=== PATIENT | female | born 1955 | race Caucasian/White ===

== ENCOUNTER 2022-07-03 06:19 | Observation (INO) ==
--- NOTE | 2022-07-03 06:47 | DR.EXTPAIN ---
HPI Time seen Time Seen by Provider: 07/03/22 06:46 PCP Primary Care Physician: AGUS SAUCEDO Complaint/Symptoms Chief Complaint Doctor Comments: 66 y/o female presents for evaluation. Was seen here yesterday with chills, confusion, day after receiving a Covid vaccine. Had an unremarkable w/u here yesterday, by me. Pt was trying to clean an imaginary chair, per the daughter, fell and hit the back of her head this am. + hematoma, back of head. + headache. No nausea, vomiting. No further chills. No URI symptoms. Denies bowel, bladder complaints. Pt recalls having some confusion few weeks ago, seen in the office. Glucose was > 400 then. Chief Complaint:: PT FELL THIS MORNING AND HIT THE BACK OF HER HEAD ON THE CONCRETE FLOOR. DENIES ANY LOSS OF CONSCIOUSNESS. PT C/O CONSTANT PAIN INTO THE BACK OF THE HEAD DESCRIBED ACHING. COVID-19 Coronavirus risk:travel/contact w/high risk person: No Has patient experienced Coronavirus symptoms: No Nurses notes reviewed Nurses Notes Review: Yes Source History Provided: Patient and EMS Mode of arrival Mode of Arrival: EMS Timing Onset of Chief Complaint: 07/03/22 PMH PMH Past Medical History: Yes Past Medical History: Asthma, Diabetes and GERD Past Surgical History: Yes Surgical History: Appendectomy and Cholecystectomy Family History History of Family Medical Conditions: Yes Family Medical History: Cancer and Hypertension Social History Does patient currently use any type of tobacco product: No Have you used tobacco products in the last 12 months: No Type of Tobacco Use: None Does any household member use tobacco: No Alcohol Use: None Do you use any recreational Drugs:: No Lives With: Family Lives Where: Home Travel Risk Coronavirus risk:travel/contact w/high risk person: No Has patient experienced Coronavirus symptoms: No Infectious screening In the last 2 months have you had wt loss of >10#?: NO Have you had fever, night sweats or hemotysis?: No Have you traveled outside the country in the last 6 months?: No Isolation: Standard ROS Review of Systems Constitutional: No Symptoms Reported Eyes: No Symptoms Reported ENTM: No Symptoms Reported Respiratoy: No Symptoms Reported Cardiovascular: No Symptoms Reported Gastrointestinal/Abdominal: No Symptoms Reported Genitourinary: No Symptoms Reported Neurological: Headache Musculoskeletal: No Symptoms Reported Integumentary: No Symptoms Reported Hematologic/Lymphatic: No Symptoms Reported Psychiatric: No Symptoms Reported All Other Systems: Reviewed and Negative PE Vital Signs Vitals: Temperature 98.3 F Pulse Rate 120 Respiratory Rate 20 Blood Pressure [Left Arm] 134/61 Blood Pressure 138/62 O2 Sat by Pulse Oximetry 99 General General Appearance: Alert and In No Apparent Distress (+ sleepy, but easily arousable) Head Head Exam: Other (+ hematoma of left occipital region, no open wound.) Eyes Eye exam: PERRL and EOMI Neck Neck Exam: Normal Inspection and Full ROM; negative Tenderness Respiratory Respiratory Exam: Normal Lung Sounds Bilat; negative Accessory Muscle Use or Respiratory Distress Cardiovascular Cardiovascular Exam: Regular Rate, Normal Rhythm and Normal Heart Sounds Abdominal Exam Abdominal Exam: Normal Inspection, Normal Bowel Sounds and Soft; negative Te nderness Extremities Extremities Exam: Normal Inspection and Full ROM; negative Edema Neurological Neurological Exam: Alert, Oriented X3 and CN II-XII Intact; negative Motor Sensory Deficit Skin Skin Exam: Warm and Dry COURSE Treatment Treatment: 66 y/o female fell this am during an episode of altered mental status. Started yesterday, w/u here was negative then. No chills today. Pt is currently oriented to , current month/year, current President. CT head without intracranial pathology, + hematoma. Pt given IV fluids, will repeat a w/u. Pt with good pulse ox awake, drops when sleeping. No known h/o sleep apnea in the past. W/u unremarkable for acute abnormalities, except elevated glucose. Given IV regular insulin here. Recommend admission for further observation. Discussed with business consultant md, accepts the admission. [facility] Labs Reviewed Laboratory Results Reviewed?: Yes Result Diagrams: 07/05/22 04:52 07/05/22 04:52 Laboratory: WBC 10.3 X10^3/uL (3.6-10.0) H 07/03/22 07:26 RBC 3.45 X10^6/uL (3.5-5.4) L 07/03/22 07:26 Hgb 10.4 g/dL (12.0-16.0) L 07/03/22 07:26 Hct 31.4 % (36.0-47.0) L 07/03/22 07:26 MCV 90.9 fL (80.0-100.0) 07/03/22 07:26 MCH 30.2 pg (27.0-34.0) 07/03/22 07: MCHC 33.2 g/dL (33.0-35.0) 07/03/22 07: RDW 13.8 % (11.6-16.5) 07/03/22 07: Plt Count 231 X10^3/uL (150.0-450.0) 07/03/22 07: MPV 7.9 fL (7.4-11.0) 07/03/22 07: Neut % (Auto) 83.9 % (42.0-75.0) H 07/03/22 07: Lymph % (Auto) 7.5 % (21.0-51.0) L 07/03/22: [place] % (Auto) 5.1 % (0.0-13.0) 07/03/22 07: Eos % (Auto) 2.9 % (0.9-2.9) 07/03/22 07: Baso % (Auto) 0.6 % (0.2-1.0) 07/03/22 07: Neut # (Auto) 8.7 x10^3/uL (2.2-4.8) H 07/03/22 07: Lymph # (Auto) 0.8 X10^3/uL (1.3-2.9) L 07/03/22 07:26 [place] # (Auto) 0.5 x10^3/uL (0.3-0.8) 07/03/22 07: Eos # (Auto) 0.3 x10^3/uL (0.0-0.2) H 07/03/22 07:26 Baso # (Auto) 0.1 X10^3/uL (0.0-0.1) 07/03/22 07: Absolute Nucleated RBC 0.0 /100WBC 07/03/22 07: Sample Site Rra 07/03/22 07:45 ABG pH 7.440 (7.35-7.45) 07/03/22 07:45 ABG pCO2 41.0 mmHg (35.0-45.0) 07/03/22 07:45 ABG pO2 72.0 mmHg (80.0-100.0) L 07/03/22 07:45 ABG HCO3 27.8 mmol/L (22-26) H 07/03/22 07:45 ABG O2 Saturation 95.0 % (90-100) 07/03/22 07:45 ABG Base Excess 3.3 mmol/L (-2.0-2.0) H 07/03/22 07:45 Roddy Test Pos 07/03/22 07:45 A-a Gradient 26.0 mmHg 07/03/22 07:45 FiO2 21.0 07/03/22 07:45 Blood Gas Comments Pt leydi well eb 07/03/22 07:45 Sodium 130 mmol/L (136-145) L 07/03/22 07:26 Corrected Sodium 138 mmol/L (136-145) 07/03/22 07:26 Potassium 4.8 mmol/L (3.5-5.1) 07/03/22 07:26 Chloride 96 mmol/L (98-107) L 07/03/22 07:26 Carbon Dioxide 28.8 mmol/L (21-32) 07/03/22 07:26 BUN 33 mg/dL (7-18) H 07/03/22 07:26 Creatinine 1.69 mg/dL (0.55-1.02) H 07/03/22 07:26 Est GFR (MDRD) Af Amer 39 (>60) L 07/03/22 07:26 Est GFR (MDRD) Non-Af 32 (>60) L 07/03/22 07:26 Glucose 448 mg/dL (65-99) H 07/03/22 07:26 Calcium 9.1 mg/dL (8.5-10.1) 07/03/22 07:26 Corrected Calcium 9.8 mg/dL (8.5-10.1) 07/03/22 07:26 Total Bilirubin 1.00 mg/dL (0.2-1.0) 07/03/22 07:26 AST 28 Units/L (15-37) 07/03/22 07:26 ALT 62 Units/L (12-78) 07/03/22 07:26 Alkaline Phosphatase 121 Units/L (46-116) H 07/03/22 07:26 Troponin I High Sens 8.7 ng/L (4.0-60.0) 07/03/22 07:26 Total Protein 6.9 g/dL (6.4-8.2) 07/03/22 07:26 Albumin 3.1 g/dL (3.4-5.0) L 07/03/22 07:26 Globulin 3.8 g/dL (2.5-4.5) 07/03/22 07:26 Albumin/Globulin Ratio 0.8 Ratio (1.1-2.1) L 07/03/22 07:26 Lipase 77 Units/L (73-393) 07/03/22 07:26 TSH 3rd Generation 0.738 uIU/mL (0.358-3.74) 07/03/22 07:26 Specimen Type Clean catch urine 07/03/22 07:36 Urine Color Yellow (YELLOW) 07/03/22 07:36 Urine Appearance Clear (CLEAR) 07/03/22 07:36 Urine pH 6.0 (5.0 - 8.0) 07/03/22 07:36 Ur Specific [place] 1.010 (1.000-1.030) 07/03/22 07:36 Urine Protein 3+ (NEGATIVE) 07/03/22 07:36 Urine Glucose (UA) 4+ (NEGATIVE) 07/03/22 07:36 Urine Ketones Negative (NEGATIVE) 07/03/22 07:36 Urine Blood Negative (NEGATIVE) 07/03/22 07:36 Urine Nitrite Negative (NEGATIVE) 07/03/22 07:36 Urine Bilirubin Negative (NEGATIVE) 07/03/22 07:36 Urine Urobilinogen Normal (NORMAL) 07/03/22 07:36 Ur Leukocyte Esterase Negative (NEGATIVE) 07/03/22 07:36 Urine RBC 0-2 /HPF (0-3) 07/03/22 07:36 Urine WBC 0-2 /HPF (0-5) 07/03/22 07:36 Ur Squamous Epith Cells Few /HPF (NEGATIVE) 07/03/22 07:36 Urine Bacteria Negative /HPF (NEGATIVE) 07/03/22 07:36 Ur Culture Indicated? No/not indicated 07/03/22 07:36 XRAY XRAY Interpreted by: Both X-ray Results: CT head without acute intracranial pathology, + posterior hematoma. Opioid Opioid Risk Tool Age (Ziggy box if 16-45): No History of Preadolescent Sexual Abuse: No Total: 0 Total Score Risk Category: Low Risk Copyright: Clifford HERRERA predicting aberrant behaviors Discharge Plan Diagnosis Discharge Problem: Altered mental status, Hyperglycemia Discharge Plan Patient Disposition: 09 ADMITTED INPATIENT Condition: Stable
--- NOTE | 2022-07-03 07:03 | CT ---
HISTORYFALLSTUDYHEAD (TRAUMA)COMPARISONNone.TECHNIQUEMultiple axial images of the head were performed from the skullbase to the vertex using standard departmental protocol. Sagittal and coronal reformatted images were performed. Dose reduction techniques including Automated Exposure Control (AEC) and adjustment of mA and kV were utilized.FINDINGSThe lateral ventricles and basilar cisterns are patent.No parenchymal mass or hematoma. Rios-white differentiation appears acutely preserved. Mild low attenuation change in the subcortical and deep supratentorial white matter.No extra-axial collection.The globes are intact.No air fluid levels in the paranasal sinuses. No paranasal sinus wall thickening or sclerosis. Mastoid air cells are clear.The calvarium is intact. There is moderate left posterior scalp hematoma measuring 5.1 x 1.6 cm axial image 5 series 13 and 6.3 cm craniocaudal image 20 series 15.IMPRESSIONNo acute intracranial abnormality. Left posterior scalp hematoma.Electronically signed by: Naun Riley (Jul 03, 2022 07:02:10)
[2022-07-03] MEDS ORDERED: NS 1,000 ML IV 1,000 ML IV ONE (07:08)
[2022-07-03 07:35] LABS: BASOPHILS # (AUTO) 0.1 X10^3/uL (0.0-0.1); BASOPHILS % (AUTO) 0.6 % (0.2-1.0); EOSINOPHILS # (AUTO) 0.3 x10^3/uL (0.0-0.2); EOSINOPHILS % (AUTO) 2.9 % (0.9-2.9); HEMATOCRIT 31.4 % (36.0-47.0); HEMOGLOBIN 10.4 g/dL (12.0-16.0); LYMPHOCYTES # (AUTO) 0.8 X10^3/uL (1.3-2.9); LYMPHOCYTES % (AUTO) 7.5 % (21.0-51.0); MEAN CORPUSCULAR HEMOGLOBIN 30.2 pg (27.0-34.0); MEAN CORPUSCULAR HGB CONC 33.2 g/dL (33.0-35.0); MEAN CORPUSCULAR VOLUME 90.9 fL (80.0-100.0); MEAN PLATELET VOLUME 7.9 fL (7.4-11.0); MONOCYTES # (AUTO) 0.5 x10^3/uL (0.3-0.8); MONOCYTES % (AUTO) 5.1 % (0.0-13.0); NEUTROPHILS # (AUTO) 8.7 x10^3/uL (2.2-4.8); NEUTROPHILS % (AUTO) 83.9 % (42.0-75.0); RED BLOOD COUNT 3.45 X10^6/uL (3.5-5.4); RED CELL DISTRIBUTION WIDTH 13.8 % (11.6-16.5); WHITE BLOOD COUNT 10.3 X10^3/uL (3.6-10.0)
[2022-07-03] MEDS ORDERED: NS 1,000 ML IV 1,000 ML ONE (07:35)
[2022-07-03 07:46] LABS: BILIRUBIN,URINE NEGATIVE (NEGATIVE); BLOOD/HEMOGLOBIN,URINE NEGATIVE (NEGATIVE); GLUCOSE, URINE 4+ (NEGATIVE); KETONES,URINE NEGATIVE (NEGATIVE); LEUKOCYTE ESTERASE ,URINE NEGATIVE (NEGATIVE); NITRITES,URINE NEGATIVE (NEGATIVE); PROTEIN,URINE 3+ (NEGATIVE); UROBILINOGEN,URINE NORMAL (NORMAL)
[2022-07-03 07:49] LABS: ABG ALLEN TEST POS; ABG BASE EXCESS 3.3 mmol/L (-2.0-2.0); ABG HCO3 27.8 mmol/L (22-26)
[2022-07-03 07:56] LABS: ALBUMIN 3.1 g/dL (3.4-5.0); CALCIUM 9.1 mg/dL (8.5-10.1); CARBON DIOXIDE 28.8 mmol/L (21-32); COR CA(FOR HYPOALB) 9.8 mg/dL (8.5-10.1); CREATININE 1.69 mg/dL (0.55-1.02); TOTAL PROTEIN 6.9 g/dL (6.4-8.2); TSH (3RD GENERATION) 0.738 uIU/mL (0.358-3.74)
[2022-07-03 07:58] LABS: APPEARANCE,URINE CLEAR (CLEAR); COLOR,URINE YELLOW (YELLOW)
[2022-07-03 07:59] LABS: BACTERIA,URINE NEGATIVE /HPF (NEGATIVE); RBC,URINE 0-2 /HPF (0-3); SQUAMOUS EPITHELIAL CELL,UR FEW /HPF (NEGATIVE)
[2022-07-03] MEDS ORDERED: NovoLIN R (or HumuLIN R) SUBCUT ONE (08:28)
[2022-07-03] MEDS ORDERED: NovoLIN R (or HumuLIN R) ONE ×2 (08:31→08:36)
--- NOTE | 2022-07-03 09:25 | RAD ---
HISTORYAMS altered mental statusSTUDYCHEST, 1 VIEWCOMPARISONFebruary 2022FINDINGSThe trachea is midline. The cardiac silhouette is unremarkable. The lungs are clear without focal infiltrate or effusion. The bony thorax is unremarkable.IMPRESSIONNo acute cardiopulmonary findings .Electronically signed by: ANDREWS IRIZARRY III (Jul 03, 2022 09:23:39)
[2022-07-03 09:49] VITALS: BMI 30.2
[2022-07-03] MEDS: NS 1,000 ML IV 1,000 ML IV SCH ×3 (10:40→19:24)
[2022-07-03] MEDS: TYLENOL 500 MG TAB EXTRA STRENGTH PO PRN ×3 (10:45→20:35)
[2022-07-03] MEDS: NovoLIN R (or HumuLIN R) SUBCUT PRN ×3 (12:50→20:20)
[2022-07-03] MEDS ORDERED: PROVENTIL NEB TX 0.083% 2.5MG/ 3ML NEB PRN (12:52)
--- NOTE | 2022-07-03 15:26 | MRI ---
HISTORYams history of fall with traumaSTUDYBRAIN W/O CONCOMPARISONHead CT 07/03/2022TECHNIQUEMultiplanar multisequence MRI of the brain was obtained without contrast using standard departmental protocol.FINDINGSDiffusion sequences show no abnormal signal. No evidence for acute ischemia.Bernstein and white matter have normal differentiation. There is no mass, shift, or hemorrhage. Cerebellar tonsils are at an appropriate level.There is normal signal flow void in the central vessels. No abnormal signal on susceptibility sequences.No fluid in the sinuses or mucosal thickening to suggest sinusitis. There is no mastoid effusion. Left parietal scalp hematoma not significantly changed in size from the head CT yesterday.IMPRESSION1. No acute finding in the brain2. Stable posterior scalp hematomaElectronically signed by: Handy Aquino (Jul 03, 2022 15:24:51)
[2022-07-03] MEDS: SNACK - Diabetic Appropriate PO SCH ×2 (19:24→20:19)
[2022-07-04] MEDS: NS 1,000 ML IV 1,000 ML IV SCH ×4 (04:51→20:45)
[2022-07-04 05:35] LABS: BASOPHILS # (AUTO) 0.1 X10^3/uL (0.0-0.1); BASOPHILS % (AUTO) 0.8 % (0.2-1.0); EOSINOPHILS # (AUTO) 0.7 x10^3/uL (0.0-0.2); HEMATOCRIT 28.2 % (36.0-47.0); HEMOGLOBIN 9.6 g/dL (12.0-16.0); LYMPHOCYTES # (AUTO) 1.3 X10^3/uL (1.3-2.9); LYMPHOCYTES % (AUTO) 17.3 % (21.0-51.0); MEAN CORPUSCULAR HEMOGLOBIN 30.4 pg (27.0-34.0); MEAN CORPUSCULAR VOLUME 89.4 fL (80.0-100.0); MEAN PLATELET VOLUME 7.9 fL (7.4-11.0); MONOCYTES # (AUTO) 0.6 x10^3/uL (0.3-0.8); MONOCYTES % (AUTO) 8.2 % (0.0-13.0); NEUTROPHILS % (AUTO) 64.7 % (42.0-75.0); RED BLOOD COUNT 3.15 X10^6/uL (3.5-5.4); RED CELL DISTRIBUTION WIDTH 13.5 % (11.6-16.5); WHITE BLOOD COUNT 7.7 X10^3/uL (3.6-10.0)
[2022-07-04] MEDS: NovoLIN R (or HumuLIN R) SUBCUT PRN ×4 (05:46→20:51)
[2022-07-04 05:57] LABS: ALANINE AMINOTRANSFERASE 50 Units/L (12-78); ALBUMIN 2.7 g/dL (3.4-5.0); ALKALINE PHOSPHATASE 107 Units/L (46-116); ASPARTATE AMINO TRANSFERASE 27 Units/L (15-37); BLOOD UREA NITROGEN 18 mg/dL (7-18); CALCIUM 9.2 mg/dL (8.5-10.1); CARBON DIOXIDE 29.3 mmol/L (21-32); CHLORIDE 100 mmol/L (98-107); COR CA(FOR HYPOALB) 10.2 mg/dL (8.5-10.1); COR NA(FOR HYPERGLY) 137 mmol/L (136-145); CREATININE 1.05 mg/dL (0.55-1.02); SODIUM 134 mmol/L (136-145); TOTAL PROTEIN 6.1 g/dL (6.4-8.2); eGFR NON BLACK RACES 56 (>60)
--- NOTE | 2022-07-04 08:48 | DR.H&P ---
H&P - History & Physical for Day of: H&P Date: 07/03/22 - Chief Complaint Chief Complaint: AMS - History of Present Illness History of Present Illness: IS A 66 YEAR OLD PATIENT OF [employer]. SHE PRESENTED TO THE ER WITH COMPLAINTS OF CHILLS AND ALTERED MENTAL STATUS. PATIENTS FAMILY MEMBERS REPORT THAT HER SYMPTOMS STARTED ONE DAY AFTER RECEIVING THE COVID-19 BOOSTER. PATIENTS FAMILY MEMBERS REPORT THAT PATIENT WAS TRYING TO CLEAN AN IMAGINARY CHAIR. SHE THEN FELL AND HIT THE BACK OF HER HEAD. SHE DID NOT LOSE CONSCIOUSNESS. SHE COMPLAINS OF A HEADACHE AND IS NOTED TO HAVE A HEMATOMA TO THE BACK OF HEAD. SHE DENIES NAUSEA, VOMITING, BOWEL COMPLAINTS, OR RESPIRATORY SYMPTOMS. PATIENT DID APPARENTLY HAVE SOME CONFUSION A FEW WEEKS AGO. AT THAT TIME, HER BLOOD GLUCOSE LEVELS WERE RUNNING ABOVE 400. HER PMH INCLUDES: HTN, HYPERLIPIDEMIA, RESTLESS LEGS, GERD, ASTHMA, DM II, GERD, APPENDECTOMY, CHOLECYSTECTOMY. ON ARRIVAL TO THE ER, HER VITALS WERE: 98.3-100-20-94%-132/60. HER SATURATIONS DID DROP TO 88% WHILE PATIENT WAS SLEEPING IN THE ER. OXYGEN WAS APPLIED VIA NASAL CANNULA AT 2 LPM. LABS WERE OBTAINED. WBC 10.3, RBC 3.45, HGB 10.4, HCT 31.4, PLT COUNT 231, SODIUM 130, POTASSIUM 4.8, CHLORIDE 96, CARBON DIOXIDE 28.8, BUN 33, CREATININE 1.69, GLUCOSE 448, CALCIUM 9.1, AST 28, ALT 62, ALK PHOS 121, TROPONIN 8.7, TOTAL PROTEIN 6.9, ALBUMIN 3.1, LIPASE 77, TSH 0.738. URINALYSIS WAS OBTAINED AND WAS UNREMARKABLE. A BRAIN CT WITHOUT CONTRAST WAS OBTAINED AND REVEALED: No acute intracranial abnormality. Left posterior scalp hematoma. A CHEST XRAY WAS OBTAINED AND REVEALED: No acute cardiopulmonary findings. IN THE ER, PATIENT WAS GIVEN A NORMAL SALINE BOLUS AND NOVOLIN R 8 UNITS SC X 1 DOSE. SHE WAS ADMITTED TO THE HOSPITAL FOR FURTHER EVALUATION AND TREATMENT OF ALTERED MENTAL STATUS AND HYPERGLYCEMIA. SHE WAS STARTED ON NORMAL SALINE AT 125 ML/HR, OTBS ACHS, HUMULIN R SLIDING SCALE, AND TYLENOL 1000MG PO Q4H PRN HEADACHE. WE WILL OBTAIN A BRAIN MRI WITHOUT CONTRAST TO RULE OUT CVA. OTHERWISE, WE WILL FOLLOW-UP WITH AM LABS AND CONTINUE TO MONITOR. TIME SPENT ON CLINICAL ASSESSMENT, REVIWING LABS AND IMAGING, DECISION MAKING, AND DOCUMENTATION GREATER THAN 45 MINUTES. - Past Medical History Past Medical History: Asthma, Diabetes, Dyslipidemia, GERD, Hypertension - Past Surgical History Surgical History: Appendectomy, Cholecystectomy, Tonsillectomy - Family History Family Medical History: Diabetes Mellitus, Cancer, ID, Coronary Artery Disease, Heart Failure, Sudden Cardiac , Hypertension - Social History Does patient currently use any type of tobacco product: No Have you used tobacco products in the last 12 months: No Type of Tobacco Use: None Does any household member use tobacco: No Alcohol Use: None Drug Use: None - Medications Home Medications: cephalexin [From Keflex] Allergy (Verified 01/15/20 11:23) ciprofloxacin [From Cipro] Allergy (Verified 01/15/20 11:23) CONTINUE taking the following medications albuterol sulfate 2.5 mg/3 mL (0.083 %) solution for nebulization 3 ml inhalation Q6H PRN 07/03/22 [History] amitriptyline 75 mg tablet 75 mg PO DAILY 07/03/22 [History] aspirin 81 mg tablet,delayed release 81 mg PO QDAY 07/03/22 [History] atorvastatin 40 mg tablet 40 mg PO QDAY 07/03/22 [History] dulaglutide 1.5 mg/0.5 mL subcutaneous pen injector (Trulicity) 1.5 mg subcut WEEKLY 07/03/22 [History] ezetimibe 10 mg tablet 10 mg PO QDAY 07/03/22 [History] famotidine 20 mg tablet 20 mg PO BID 07/03/22 [History] gabapentin 600 mg tablet 600 mg PO TID 07/03/22 [History] hydrochlorothiazide 25 mg tablet 25 mg PO QDAY 07/03/22 [History] insulin aspart U-100 100 unit/mL (3 mL) subcutaneous pen (Novolog FlexPen U-100 Insulin aspart) See Rx Instructions .Route .COMPLEX 07/03/22 [History] metoclopramide HCl 10 mg tablet 10 mg PO QID 07/03/22 [History] montelukast 10 mg tablet 10 mg PO QDAY 07/03/22 [History] omeprazole 40 mg capsule,delayed release 40 mg PO QDAY 07/03/22 [History] potassium chloride 10 mEq capsule,extended release 10 meq PO QDAY 07/03/22 [History] ropinirole 0.5 mg tablet 0.5 mg PO BID 07/03/22 [History] - Review of Systems Constitutional: Weakness Eyes: No Symptoms Reported ENT: No Symptoms Reported Respiratory: No Symptoms Reported Cardiovascular: No Symptoms Reported Gastrointestinal: No Symptoms Reported Genitourinary: No Symptoms Reported Musculoskeletal: No Symptoms Reported Skin: Wound (HEMATOMA TO POSTERIOR SCALP ) Neurological: Weakness, Confusion, Other (HEADACHE ) - Physical Exam Vital Signs: Temperature 98.5 F Pulse Rate [Left Radial] 92 Pulse Rate 120 Respiratory Rate 20 Blood Pressure [Left Arm] 157/70 Blood Pressure 138/62 O2 Sat by Pulse Oximetry 95 Oriented: Not Oriented Eyes: Normal Ear: Normal Nose: Normal Throat: Normal Respiratory: Diminished Throughout Cardiovascular: Normal : Normal Auscultation: Bowel Sounds: Normal Palpation: Normal Tenderness: Normal Skin: Other (HEMATOMA POSTERIOR SCALP ) Musculoskeletal: Normal Mood Description: Flat Affect: Flat Speech Pattern: Inappropriate - Assessment/Plan (1) Altered mental status Qualifiers: Altered mental status type: transient alteration of awareness Qualified Code(s): R40.4 - Transient alteration of awareness Status: Acute Plan: ADMIT, OBTAIN BRAIN MRI, NORMAL SALINE AT 125 ML/HR, OTBS ACHS, HUMULIN R SLIDING SCALE, AND TYLENOL 1000MG PO Q4H PRN HEADACHE. RESUME HOME MEDS (2) Hyperglycemia Status: Acute (3) GERD (gastroesophageal reflux disease) Status: Chronic (4) DM (diabetes mellitus) Qualifiers: Diabetes mellitus type: type 2 Diabetes mellitus usp insulin use: with usp use Diabetes mellitus complication status: with hyperglycemia Qualified Code(s): E11.65 - Type 2 diabetes mellitus with hyperglycemia; Z79.4 - prison (current) use of insulin Status: Chronic (5) Hyperlipidemia Qualifiers: Hyperlipidemia type: mixed hyperlipidemia Qualified Code(s): E78.2 - Mixed hyperlipidemia Status: Chronic (6) Restless legs syndrome Status: Chronic - Allergies Allergies/Adverse Reactions: Allergies Allergy/AdvReac Type Severity Reaction Status Date / Time cephalexin [From Keflex] Allergy Verified 01/15/20 11:23 ciprofloxacin [From Cipro] Allergy Verified 01/15/20 11:23
[2022-07-04] MEDS: ELAVIL PO SCH (09:33)
[2022-07-04] MEDS: ASPIRIN EC 81 MG PO SCH (09:33)
[2022-07-04] MEDS: HYDROCHLOROTHIAZIDE 25 MG TAB PO SCH (09:33)
[2022-07-04] MEDS: LANTUS SC SCH (09:34)
[2022-07-04] MEDS: MICRO K EXTEN CAP 10 MEQ PO SCH (09:34)
[2022-07-04] MEDS: PEPCID TAB 20 MG PO SCH ×2 (09:35→20:49)
[2022-07-04] MEDS: REGLAN TAB 10 MG PO SCH ×4 (09:36→20:47)
[2022-07-04] MEDS: SINGULAIR TAB 10 MG PO SCH (09:36)
[2022-07-04] MEDS: ZETIA TAB 10 MG PO SCH (09:36)
[2022-07-04] MEDS: REQUIP PO SCH ×2 (09:36→20:48)
[2022-07-04] MEDS: PriLOSEC PO SCH (09:38)
[2022-07-04] MEDS: NEURONTIN TAB 600 MG PO SCH ×2 (13:18→22:30)
[2022-07-04] MEDS ORDERED: SNACK - Diabetic Appropriate PO SCH (20:00)
[2022-07-04] MEDS: SNACK - Diabetic Appropriate PO SCH (20:50)
[2022-07-04] MEDS ORDERED: LIPITOR TAB 40 MG PO SCH (21:00)
[2022-07-05] MEDS: SNACK - Diabetic Appropriate PO SCH (01:28)
[2022-07-05] MEDS: NEURONTIN TAB 600 MG PO SCH (05:25)
[2022-07-05] MEDS: NS 1,000 ML IV 1,000 ML IV SCH ×2 (05:25)
[2022-07-05 05:33] LABS: BASOPHILS # (AUTO) 0.1 X10^3/uL (0.0-0.1); BASOPHILS % (AUTO) 0.9 % (0.2-1.0); EOSINOPHILS # (AUTO) 0.5 x10^3/uL (0.0-0.2); EOSINOPHILS % (AUTO) 6.1 % (0.9-2.9); HEMATOCRIT 28.8 % (36.0-47.0); HEMOGLOBIN 9.6 g/dL (12.0-16.0); LYMPHOCYTES # (AUTO) 1.4 X10^3/uL (1.3-2.9); LYMPHOCYTES % (AUTO) 17.7 % (21.0-51.0); MEAN CORPUSCULAR HEMOGLOBIN 29.8 pg (27.0-34.0); MEAN CORPUSCULAR HGB CONC 33.5 g/dL (33.0-35.0); MEAN PLATELET VOLUME 7.5 fL (7.4-11.0); MONOCYTES # (AUTO) 0.7 x10^3/uL (0.3-0.8); NEUTROPHILS # (AUTO) 5.1 x10^3/uL (2.2-4.8); NEUTROPHILS % (AUTO) 66.3 % (42.0-75.0); RED BLOOD COUNT 3.23 X10^6/uL (3.5-5.4); RED CELL DISTRIBUTION WIDTH 13.7 % (11.6-16.5); WHITE BLOOD COUNT 7.7 X10^3/uL (3.6-10.0)
[2022-07-05 05:46] LABS: ALANINE AMINOTRANSFERASE 41 Units/L (12-78); ALBUMIN 2.7 g/dL (3.4-5.0); ALKALINE PHOSPHATASE 106 Units/L (46-116); ASPARTATE AMINO TRANSFERASE 24 Units/L (15-37); BLOOD UREA NITROGEN 14 mg/dL (7-18); CALCIUM 9.4 mg/dL (8.5-10.1); CARBON DIOXIDE 27.9 mmol/L (21-32); CHLORIDE 99 mmol/L (98-107); COR CA(FOR HYPOALB) 10.4 mg/dL (8.5-10.1); COR NA(FOR HYPERGLY) 139 mmol/L (136-145); CREATININE 0.97 mg/dL (0.55-1.02); SODIUM 135 mmol/L (136-145); TOTAL PROTEIN 6.2 g/dL (6.4-8.2); eGFR NON BLACK RACES > 60 (>60)
[2022-07-05] MEDS: NovoLIN R (or HumuLIN R) SUBCUT PRN (05:48)
[2022-07-05] MEDS: LANTUS SC SCH (08:17)
[2022-07-05 08:19] VITALS: BP 141/67
[2022-07-05] MEDS: ASPIRIN EC 81 MG PO SCH (08:19)
[2022-07-05] MEDS: HYDROCHLOROTHIAZIDE 25 MG TAB PO SCH (08:19)
[2022-07-05] MEDS: PEPCID TAB 20 MG PO SCH (08:19)
[2022-07-05] MEDS: PriLOSEC PO SCH (08:20)
[2022-07-05] MEDS: REGLAN TAB 10 MG PO SCH (08:20)
[2022-07-05] MEDS: ELAVIL PO SCH (08:21)
[2022-07-05] MEDS: MICRO K EXTEN CAP 10 MEQ PO SCH (08:22)
[2022-07-05] MEDS: REQUIP PO SCH (08:22)
[2022-07-05] MEDS: SINGULAIR TAB 10 MG PO SCH (08:22)
[2022-07-05] MEDS: ZETIA TAB 10 MG PO SCH (08:22)
[2022-07-05] MEDS ORDERED: XARELTO PO SCH (09:30)
[2022-07-05] MEDS ORDERED: ECOTRIN TAB 325 MG PO SCH (10:00)
== END 2022-07-05 10:46 | disposition home or self-care (01) ==
LOC: ER 06:19 → MED/SURG 06:19
PROVIDERS: ADMIT Internal Medicine; ATTEND Internal Medicine
DX: E78.2 Mixed hyperlipidemia; G25.81 Restless legs syndrome; K21.9 Gastro-esophageal reflux disease without esophagitis; S00.03XA Contusion of scalp, initial encounter; W18.39XA Other fall on same level, initial encounter; Z79.4 Long term (current) use of insulin; I10 Essential (primary) hypertension; R40.4 Transient alteration of awareness; Y92.9 Unspecified place or not applicable; R51.9 Headache, unspecified